=== PATIENT | female | born 1985 | race Caucasian/White ===

== ENCOUNTER 2022-01-30 18:59 | Emergency (ER) | payer OTHER ==
[~2022-01-30 18:59] MED LIST: NORCO 7.5-3251 EACH PO; PERCOCET 10-321 EACH PO
[2022-01-30 20:42] LABS: HEMOGLOBIN 17.7 gm/dl (12.3-15.3); RED BLOOD COUNT 5.82 M/UL (4.00-5.10); WHITE BLOOD COUNT 10.9 K/UL (4.5-11.0)
[2022-01-30 21:00] LABS: BUN/CREATININE RATIO 20 (0-10)
[2022-01-31] MEDS ORDERED: ZOFRAN ODT 4 MG4 MG PO (00:32)
[2022-01-31] MEDS ORDERED: JANUVIA25 MG PO (00:32)
[2022-01-31] MEDS ORDERED: METFORMIN HCL500 MG PO (00:32)
== END 2022-01-31 01:46 | disposition home or self-care (01) ==
LOC: ER1 18:59
PROVIDERS: Physician Assistant Medical
DX: E11.65 Type 2 diabetes mellitus with hyperglycemia (principal); R10.13 Epigastric pain; F17.200 Nicotine dependence, unspecified, uncomplicated; Z88.0 Allergy status to penicillin; Z88.5 Allergy status to narcotic agent
CPT/HCPCS: 70450; 80053; 81001; 82009; 82803; 82962; 83036; 83690; 84703; 85025; 96374; 96375; 96376; 99284; J2270; J2405; Q9967